=== PATIENT | female | born 1995 | race Hispanic/Latino ===

== ENCOUNTER 2022-09-12 14:06 | Emergency (ER) | payer BC ==
[~2022-09-12] VITALS: Ht 165.1 cm; Wt 62.1 kg
[~2022-09-12 14:06] MED LIST: DOCU-116 PO; IBUP-2077 PO; PREN-196 PO; [UNRECOGNIZED DRUG - OTHER] PO
[2022-09-12] MEDS ORDERED: ONDANSETRON 4MG INJ IVP ONE (15:00)
[2022-09-12] MEDS ORDERED: 0.9%NACL 1000ML 1,000 ML IV ONE (15:00)
[2022-09-12 15:34] LABS: HEMATOCRIT 36.9 % (36-48); MEAN CORPUSCULAR HEMOGLOBIN 28.9 pg (27.0-33.0); MEAN CORPUSCULAR VOLUME 90.4 fL (79-99); RED BLOOD CELL COUNT(AUTO) 4.08 MIL/uL (4.00-5.50); RED CELL DISTRIBUTION WIDTH 13.2 % (11.0-15.5); WHITE BLOOD COUNT (AUTO) 12.2 K/uL (4.8-10.8)
[2022-09-12 15:46] LABS: CREATININE 0.5 mg/dL (0.5-1.5); POTASSIUM 4.1 mmol/L (3.5-5.1)
[2022-09-12 15:51] LABS: ALBUMIN 2.9 g/dL (3.5-5.0)
[2022-09-12] MEDS ORDERED: LIDOCAINE HCL-MPF 2% 5ML VIAL ONE (17:23)
[2022-09-12] MEDS ORDERED: BUTALB/ACETAMINOPHEN/CAFFEINE 1 EACH TABLET PO SCH (18:00)
[2022-09-12 18:03] LABS: APPEARANCE,URINE CLOUDY (CLEAR); BILIRUBIN,URINE NEGATIVE (NEGATIVE); COLOR,URINE YELLOW (YELLOW); GLUCOSE, URINE (UA) NEGATIVE (NEGATIVE); KETONES,URINE 20 mg/dL (NEGATIVE); LEUKOCYTE ESTERASE ,URINE 500 Leu/uL (NEGATIVE); NITRATE,URINE NEGATIVE (NEGATIVE); OCCULT BLOOD,URINE LARGE (NEGATIVE); PROTEIN,URINE 30 mg/dL (NEGATIVE); UROBILINOGEN,URINE 0.2 mg/dL (0.2-1.0)
[2022-09-12 18:10] LABS: BACTERIA,URINE RARE /HPF (None Seen); MUCUS,URINE RARE LPF (None Seen); RBC,URINE TNTC /HPF (0-1); SQUAMOUS EPITHELIAL CELL,UR RARE /HPF (0-2); WBC,URINE TNTC /HPF (0-1)
[2022-09-12] MEDS ORDERED: AMOX1TAB16 PO (18:11)
[2022-09-12] MEDS ORDERED: CEFTRIAXONE 1G VIAL IVPB ONE (18:30)
[2022-09-12 19:38] VITALS: BP 140/85
== END 2022-09-12 19:43 | disposition home or self-care (01) ==
LOC: EDH 14:06
DX: R51.9 Headache, unspecified (principal); N39.0 Urinary tract infection, site not specified; Z79.899 Other long term (current) drug therapy
CPT/HCPCS: 99284; 96365; 70450; 96361; 96375; 80053; 85027; 86850; 86900; 86901; 87040 ×2; 87088; 83605; 81001; 36415; J7030; J0696; J2405; J3490

== ENCOUNTER 2022-09-13 12:50 | Day surgery (SDC) | payer BC ==
[~2022-09-13 12:50] MED LIST changes: +AMOX1TAB16 PO
[2022-09-13 13:53] LABS: BASOPHILS % (AUTO) 0.4 % (0.0-5.0); EOSINOPHILS % (AUTO) 0.8 % (0.0-8.0); HEMATOCRIT 32.2 % (36-48); LYMPHOCYTES % (AUTO) 20.9 % (21.0-51.0); MEAN CORPUSCULAR HEMOGLOBIN 29.1 pg (27.0-33.0); MONOCYTES % (AUTO) 6.1 % (3.0-13.0); NEUTROPHILS % (AUTO) 69.9 % (40.0-77.0); PLATELET COUNT (AUTO) 342 K/uL (130-400); RED BLOOD CELL COUNT(AUTO) 3.54 MIL/uL (4.00-5.50); RED CELL DISTRIBUTION WIDTH 13.2 % (11.0-15.5); WHITE BLOOD COUNT (AUTO) 10.7 K/uL (4.8-10.8)
[2022-09-13 14:00] VITALS: BP 131/75
[2022-09-13] MEDS ORDERED: MIDAZOLAM HCL 1 MG/ML 5ML VIAL ONE (14:20)
== END 2022-09-13 17:30 | disposition home or self-care (01) ==
LOC: DAH 12:50
PROVIDERS: ATTEND Obstetrics & Gynecology
DX: R51.9 Headache, unspecified (principal)
CPT/HCPCS: 85025; 36415; J2250